=== PATIENT | male | born 1940 | race Caucasian/White ===

== ENCOUNTER → 2017-03-28 | Outpatient (CLI) | payer OTHER ==
[~2017-03-28] MED LIST: PROHANCE 279.3MG/ML 15ML VIAL (A9576) As Ordered ONE; PROHANCE 279.3MG/ML 5ML VIAL (A9576) As Ordered ONE
--- NOTE | 2017-03-28 17:40 | REP ---
MRI BRAIN WITHOUT AND WITH CONTRAST: HISTORY: Headache. CONTRAST: ProHance 17 mL. A ring enhancing mass is present in the left temporal lobe. The mass measures 3.6 cm in transverse x 4.9 cm in AP x 3.6 cm in cephalocaudal dimensions. Surrounding vasogenic edema is present. There is mass effect with partial effacement of the overlying cortical sulci and posterior body and atrium of the left lateral ventricle with very minimal midline shift to the right. A punctate focus of increased signal intensity on diffusion weighted images is present in the anterior left parietal lobe. This is decreased in signal intensity on ADC images and is consistent with an acute infarction. Areas of increased signal intensity on T2-weighted images are present in the periventricular and the subcortical white matter. This represents small vessel ischemic disease. There is no intraparenchymal hemorrhage. The ventricular system and cortical sulci are dilated consistent with minimal volume loss. There is no extracerebral collection. Mucosal thickening is present in the maxillary sinuses. IMPRESSION: 1. 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 2. Punctate acute left parietal lobe infarction. 3. Small vessel ischemic disease. 4. Minimal volume loss. Signed by Alex Lopez MD 03/28/2017 06:07 P
== END ==
LOC: M RAD 15:45
PROVIDERS: ATTEND Internal Medicine
DX: R51 Headache (principal); R41.0 Disorientation, unspecified
CPT/HCPCS: 70553; A9576

== ENCOUNTER → 2017-05-30 | Outpatient (REF) | payer MEDICARE ==
[~2017-05-30] MED LIST changes: +ADV250INH INH; +ALBU1.25 INH; +DEXA2TA PO; +GUAI400T6 PO; +KEPP1TAB PO; +KEPP500T13 PO; +LISI-538 PO; +OCUVTAB PO; +OMEP20CA3 PO; -PROHANCE 279.3MG/ML 15ML VIAL (A9576) As Ordered ONE; -PROHANCE 279.3MG/ML 5ML VIAL (A9576) As Ordered ONE; +SIMV20TA2 PO; +SODI1TAB6 PO; +TRAV04OPD OU; +occuvite PO
[2017-05-30 13:35] LABS: INR 0.92
== END ==
LOC: M LAB REF 12:54
PROVIDERS: ATTEND Internal Medicine Medical Oncology
DX: C34.32 Malignant neoplasm of lower lobe, left bronchus or lung (principal); C79.31 Secondary malignant neoplasm of brain

== ENCOUNTER 2017-06-06 13:19 | Inpatient (IN) | payer MEDICARE ==
[~2017-06-06 13:19] MED LIST changes: -ADV250INH INH; -ALBU1.25 INH; -DEXA2TA PO; -GUAI400T6 PO; -KEPP1TAB PO; -KEPP500T13 PO; -LISI-538 PO; -OCUVTAB PO; -OMEP20CA3 PO; +SENOKOT S TAB PO; -SIMV20TA2 PO; -SODI1TAB6 PO; -TRAV04OPD OU; -occuvite PO
[2017-06-06] MEDS: IPRATROPIUM 0.5MG/ALBUTEROL 2.5MG INH SOL UD 3ML (DUONEB)(J7620) NEB ×3 (14:41→20:22)
[2017-06-06 14:45] LABS: ABG BASE EXCESS -0.5 (-2.0-2.0); ABG HCO3 22.3 MEQ/L (22.0-26.0); ABG O2 SATURATION 97.4 % (95.0-99.0); ABG PARTIAL PRESSURE CO2 30.9 mmHg (35.0-45.0); ABG STANDARD HCO3 24.1 MEQ/L (22.0-26.0); ABG TOTAL CO2 23.3 MEQ/L (23.0-31.0); ABG pH (ARTERIAL) 7.477 UNITS (7.350-7.450)
[2017-06-06 14:57] LABS: BASO % 0.3 % (0.0-1.0); EOS % 0.4 % (0.0-3.0); HEMATOCRIT 32.5 % (42.0-52.0); HEMOGLOBIN 10.7 g/dl (14.0-18.0); IMMATURE GRANULOCYTE # 0.3 10^3/uL (0-0); IMMATURE GRANULOCYTE % 2.7 % (0-0); LYMPH # 1.2 10^3/uL (1.5-4.5); LYMPH % 10.8 % (24.0-44.0); MEAN CORPUSCULAR HEMOGLOBIN 28.8 pg (27.0-33.0); MEAN CORPUSCULAR HGB CONC 32.9 g/dl (32.0-36.5); MEAN CORPUSCULAR VOLUME 87.6 fl (80.0-96.0); MONO # 0.6 10^3/uL (0.0-0.8); MONO % 5.2 % (0.0-5.0); NEUTROPHILS # 8.7 10^3/uL (1.8-7.7); NEUTROPHILS % 80.6 % (36.0-66.0); PLATELET COUNT, AUTOMATED 252 10^3/uL (150-450); RED BLOOD COUNT 3.71 10^6/uL (4.30-6.10); RED CELL DISTRIBUTION WIDTH 17.6 % (11.5-14.5); WHITE BLOOD COUNT 10.8 10^3/uL (4.0-10.0)
[2017-06-06 15:30] LABS: LACTIC ACID SEPSIS PROTOCOL 1.4 MMOL/L (0.4-2.0)
[2017-06-06 15:34] LABS: THYROID STIMULATING HORMONE 0.615 uIU/ML (0.358-3.740)
[2017-06-06 15:34] LABS: NT-PRO BNP 956 PG/ML (<450)
[2017-06-06 15:36] LABS: ANION GAP 8 MEQ/L (8-16); BLOOD UREA NITROGEN 20 MG/DL (7-18); CALCIUM LEVEL 8.3 MG/DL (8.8-10.2); CARBON DIOXIDE LEVEL 28 MEQ/L (21-32); CHLORIDE LEVEL 104 MEQ/L (98-107); CPK CREATINE PHOSPHOKINASE 62 U/L (39-308); GLOMERULAR FILTRATION RATE > 60.0 (>42); GLUCOSE, FASTING 149 MG/DL (83-110); MB/CK RELATIVE INDEX 3.22 (< OR =4); SODIUM LEVEL 140 MEQ/L (136-145); TROPONIN I < 0.02 NG/ML (< 0.10)
[2017-06-06] MEDS: AZITHROMYCIN INJ 500 MG, VIAL MATE ADAPTER 1 EACH in D5W 250 ML IV (16:27)
[2017-06-06] MEDS ORDERED: ISOVUE-370 76% 100ML VIAL (Q9967) As Ordered (16:42)
[2017-06-06] MEDS ORDERED: ONDANSETRON 4MG/2ML VIAL (J2405) IV (16:45)
[2017-06-06] MEDS ORDERED: PERCOCET 5MG/325MG TAB PO (16:45)
[2017-06-06] MEDS: CEFTRIAXONE SOD 2 GM in APPROPRIATE DILUENT 1 EA IV (17:47)
[2017-06-06] MEDS: dexameTHASONE 20 MG/5 ML VIAL (J1100) IV (19:59)
[2017-06-06] MEDS ORDERED: SENOKOT S TAB PO ×2 (21:00)
[2017-06-06] MEDS: ADVAIR HFA 115/21MCG INHALER INH (21:00)
[2017-06-06] MEDS ORDERED: guaiFENesin ER 600 MG TAB PO (21:00)
[2017-06-06] MEDS ORDERED: HEPARIN SOD (PORCINE) 5000 UNITS/ML VIAL SC (21:00)
[2017-06-06] MEDS: HEPARIN SOD (PORCINE) 5000 UNITS/ML VIAL SC (22:34)
[2017-06-06] MEDS: SENOKOT S TAB PO (22:35)
[2017-06-06] MEDS: SIMVASTATIN 20 MG TAB PO (22:35)
[2017-06-06] MEDS: LATANOPROST 0.005% OPHTH SOLN 2.5 ML OU (22:35)
[2017-06-06] MEDS: LISINOPRIL 20 MG TAB PO (22:35)
[2017-06-06] MEDS: levETIRAcetam 250MG TABLET (KEPPRA) PO (22:36)
[2017-06-06] MEDS: guaiFENesin ER 600 MG TAB PO (22:36)
[2017-06-07] MEDS: IPRATROPIUM 0.5MG/ALBUTEROL 2.5MG INH SOL UD 3ML (DUONEB)(J7620) NEB ×4 (00:04→19:42)
[2017-06-07] MEDS: dexameTHASONE 20 MG/5 ML VIAL (J1100) IV ×2 (02:47→10:35)
[2017-06-07 06:00] LABS: HEMATOCRIT 33.6 % (42.0-52.0); HEMOGLOBIN 10.8 g/dl (14.0-18.0); MEAN CORPUSCULAR HEMOGLOBIN 27.8 pg (27.0-33.0); MEAN CORPUSCULAR HGB CONC 32.1 g/dl (32.0-36.5); MEAN CORPUSCULAR VOLUME 86.4 fl (80.0-96.0); PLATELET COUNT, AUTOMATED 261 10^3/uL (150-450); RED BLOOD COUNT 3.89 10^6/uL (4.30-6.10); RED CELL DISTRIBUTION WIDTH 17.3 % (11.5-14.5); WHITE BLOOD COUNT 11.6 10^3/uL (4.0-10.0)
[2017-06-07 06:14] LABS: ANION GAP 10 MEQ/L (8-16); BLOOD UREA NITROGEN 20 MG/DL (7-18); CALCIUM LEVEL 8.4 MG/DL (8.8-10.2); CARBON DIOXIDE LEVEL 24 MEQ/L (21-32); CHLORIDE LEVEL 104 MEQ/L (98-107); CREATININE FOR GFR 0.67 MG/DL (0.70-1.30); GLOMERULAR FILTRATION RATE > 60.0 (>42); GLUCOSE, FASTING 163 MG/DL (83-110); MAGNESIUM LEVEL 2.1 MG/DL (1.8-2.4); SODIUM LEVEL 138 MEQ/L (136-145)
[2017-06-07] MEDS: ADVAIR HFA 115/21MCG INHALER INH ×2 (07:56→19:41)
[2017-06-07] MEDS: HEPARIN SOD (PORCINE) 5000 UNITS/ML VIAL SC ×2 (08:06→21:50)
[2017-06-07] MEDS: guaiFENesin ER 600 MG TAB PO ×2 (08:07→21:46)
[2017-06-07] MEDS: SODIUM CHLORIDE 1 GM TAB PO (08:07)
[2017-06-07] MEDS: levETIRAcetam 250MG TABLET (KEPPRA) PO ×2 (08:07→21:45)
[2017-06-07] MEDS: SENOKOT S TAB PO ×2 (08:07→21:46)
[2017-06-07] MEDS: OCUVITE 1 TAB PO (08:07)
[2017-06-07] MEDS: OMEPRAZOLE 20 MG CAP PO (08:07)
[2017-06-07] MEDS ORDERED: PANTOPRAZOLE 40MG TAB (PROTONIX) PO (09:00)
[2017-06-07] MEDS: VANCOMYCIN HCL 1,000 MG, VIAL MATE ADAPTER 1 EACH in D5W 250 ML IV ×2 (10:35→21:50)
[2017-06-07] MEDS: VANCOMYCIN HCL 750 MG, VIAL MATE ADAPTER 1 EACH in D5W 250 ML IV (11:45)
[2017-06-07] MEDS: PIPERACILLIN/TAZOBACTAM SOD 3.375 GM in APPROPRIATE DILUENT 1 EA IV ×3 (13:23→23:54)
[2017-06-07] MEDS ORDERED: AZITHROMYCIN INJ 500 MG, VIAL MATE ADAPTER 1 EACH in D5W 250 ML IV (16:00)
[2017-06-07] MEDS ORDERED: CEFTRIAXONE SOD 2 GM in APPROPRIATE DILUENT 1 EA IV (18:00)
[2017-06-07] MEDS: SIMVASTATIN 20 MG TAB PO (21:46)
[2017-06-07] MEDS: LISINOPRIL 20 MG TAB PO (21:49)
[2017-06-07] MEDS: LATANOPROST 0.005% OPHTH SOLN 2.5 ML OU (21:51)
[2017-06-08] MEDS: IPRATROPIUM 0.5MG/ALBUTEROL 2.5MG INH SOL UD 3ML (DUONEB)(J7620) NEB ×5 (02:00→20:00)
[2017-06-08] MEDS ORDERED: SLF 3 ML SYR IV (03:00)
[2017-06-08] MEDS: PIPERACILLIN/TAZOBACTAM SOD 3.375 GM in APPROPRIATE DILUENT 1 EA IV ×4 (03:26→23:42)
[2017-06-08] MEDS: SLF 3 ML SYR IV ×3 (03:26→21:57)
[2017-06-08 05:40] LABS: HEMATOCRIT 30.9 % (42.0-52.0); MEAN CORPUSCULAR HEMOGLOBIN 28.5 pg (27.0-33.0); MEAN CORPUSCULAR HGB CONC 32.4 g/dl (32.0-36.5); PLATELET COUNT, AUTOMATED 289 10^3/uL (150-450); RED BLOOD COUNT 3.51 10^6/uL (4.30-6.10); RED CELL DISTRIBUTION WIDTH 17.2 % (11.5-14.5); WHITE BLOOD COUNT 11.4 10^3/uL (4.0-10.0)
[2017-06-08 06:04] LABS: ANION GAP 8 MEQ/L (8-16); BLOOD UREA NITROGEN 24 MG/DL (7-18); C REACTIVE PROTEIN QUANTITATIV 6.46 MG/DL (0.00-0.30); CALCIUM LEVEL 8.6 MG/DL (8.8-10.2); CARBON DIOXIDE LEVEL 28 MEQ/L (21-32); CHLORIDE LEVEL 103 MEQ/L (98-107); CREATININE FOR GFR 0.78 MG/DL (0.70-1.30); GLOMERULAR FILTRATION RATE > 60.0 (>42); GLUCOSE, FASTING 119 MG/DL (83-110); MAGNESIUM LEVEL 1.9 MG/DL (1.8-2.4); POTASSIUM SERUM 3.8 MEQ/L (3.5-5.1); SODIUM LEVEL 139 MEQ/L (136-145)
[2017-06-08] MEDS: ADVAIR HFA 115/21MCG INHALER INH ×2 (07:25→20:04)
[2017-06-08] MEDS: guaiFENesin ER 600 MG TAB PO ×2 (09:01→20:53)
[2017-06-08] MEDS: OMEPRAZOLE 20 MG CAP PO (09:01)
[2017-06-08] MEDS: SENOKOT S TAB PO ×2 (09:01→20:53)
[2017-06-08] MEDS: OCUVITE 1 TAB PO (09:01)
[2017-06-08] MEDS: HEPARIN SOD (PORCINE) 5000 UNITS/ML VIAL SC ×2 (09:02→20:54)
[2017-06-08] MEDS: levETIRAcetam 250MG TABLET (KEPPRA) PO ×2 (09:02→20:53)
[2017-06-08] MEDS: VANCOMYCIN HCL 1,000 MG, VIAL MATE ADAPTER 1 EACH in D5W 250 ML IV ×2 (09:02→20:54)
[2017-06-08] MEDS: SODIUM CHLORIDE 1 GM TAB PO (09:02)
[2017-06-08] MEDS: NS 1,000 ML IV (12:43)
[2017-06-08 20:53] LABS: VANCOMYCIN LEVEL TROUGH 10.9 UG/ML (10.0-20.0)
[2017-06-08] MEDS: LISINOPRIL 20 MG TAB PO (20:53)
[2017-06-08] MEDS: LATANOPROST 0.005% OPHTH SOLN 2.5 ML OU (20:53)
[2017-06-08] MEDS: SIMVASTATIN 20 MG TAB PO (20:53)
[2017-06-09] MEDS: IPRATROPIUM 0.5MG/ALBUTEROL 2.5MG INH SOL UD 3ML (DUONEB)(J7620) NEB ×4 (01:37→19:47)
[2017-06-09] MEDS: VANCOMYCIN HCL 500 MG in D5W MINI-BAG PLUS 100 ML IV (03:15)
[2017-06-09] MEDS: PIPERACILLIN/TAZOBACTAM SOD 3.375 GM in APPROPRIATE DILUENT 1 EA IV ×4 (04:20→22:36)
[2017-06-09 05:10] LABS: HEMATOCRIT 29.8 % (42.0-52.0); HEMOGLOBIN 9.8 g/dl (14.0-18.0); MEAN CORPUSCULAR HEMOGLOBIN 28.7 pg (27.0-33.0); MEAN CORPUSCULAR HGB CONC 32.9 g/dl (32.0-36.5); MEAN CORPUSCULAR VOLUME 87.4 fl (80.0-96.0); PLATELET COUNT, AUTOMATED 253 10^3/uL (150-450); RED BLOOD COUNT 3.41 10^6/uL (4.30-6.10); RED CELL DISTRIBUTION WIDTH 17.2 % (11.5-14.5); WHITE BLOOD COUNT 9.8 10^3/uL (4.0-10.0)
[2017-06-09 05:33] LABS: ANION GAP 8 MEQ/L (8-16); BLOOD UREA NITROGEN 15 MG/DL (7-18); CALCIUM LEVEL 8.3 MG/DL (8.8-10.2); CARBON DIOXIDE LEVEL 29 MEQ/L (21-32); CHLORIDE LEVEL 103 MEQ/L (98-107); CREATININE FOR GFR 0.65 MG/DL (0.70-1.30); GLOMERULAR FILTRATION RATE > 60.0 (>42); GLUCOSE, FASTING 99 MG/DL (83-110); MAGNESIUM LEVEL 2.1 MG/DL (1.8-2.4); POTASSIUM SERUM 3.5 MEQ/L (3.5-5.1); SODIUM LEVEL 140 MEQ/L (136-145)
[2017-06-09] MEDS: SLF 3 ML SYR IV ×3 (06:00→22:00)
[2017-06-09] MEDS: NS 1,000 ML IV (06:04)
[2017-06-09] MEDS: ADVAIR HFA 115/21MCG INHALER INH ×2 (07:05→19:47)
[2017-06-09] MEDS: VANCOMYCIN HCL 1,000 MG, VIAL MATE ADAPTER 1 EACH in D5W 250 ML IV ×2 (09:49→21:23)
[2017-06-09] MEDS: HEPARIN SOD (PORCINE) 5000 UNITS/ML VIAL SC ×2 (09:49→21:23)
[2017-06-09] MEDS: OCUVITE 1 TAB PO (09:50)
[2017-06-09] MEDS: levETIRAcetam 250MG TABLET (KEPPRA) PO ×2 (09:51→21:22)
[2017-06-09] MEDS: SODIUM CHLORIDE 1 GM TAB PO (09:51)
[2017-06-09] MEDS: guaiFENesin ER 600 MG TAB PO ×2 (09:51→21:23)
[2017-06-09] MEDS: SENOKOT S TAB PO ×2 (09:51→21:00)
[2017-06-09] MEDS: OMEPRAZOLE 20 MG CAP PO (09:51)
[2017-06-09] MEDS: ACETAMINOPHEN TAB 650MG DOSE (2X325MG) PO (15:01)
[2017-06-09] MEDS: LISINOPRIL 20 MG TAB PO (21:22)
[2017-06-09] MEDS: SIMVASTATIN 20 MG TAB PO (21:23)
[2017-06-09] MEDS: LATANOPROST 0.005% OPHTH SOLN 2.5 ML OU (21:23)
[2017-06-10] MEDS: IPRATROPIUM 0.5MG/ALBUTEROL 2.5MG INH SOL UD 3ML (DUONEB)(J7620) NEB ×3 (02:00→12:56)
[2017-06-10] MEDS: PIPERACILLIN/TAZOBACTAM SOD 3.375 GM in APPROPRIATE DILUENT 1 EA IV ×2 (03:23→09:00)
[2017-06-10 04:12] LABS: HEMOGLOBIN 9.4 g/dl (14.0-18.0); MEAN CORPUSCULAR HEMOGLOBIN 28.2 pg (27.0-33.0); MEAN CORPUSCULAR HGB CONC 32.4 g/dl (32.0-36.5); MEAN CORPUSCULAR VOLUME 87.1 fl (80.0-96.0); PLATELET COUNT, AUTOMATED 276 10^3/uL (150-450); RED BLOOD COUNT 3.33 10^6/uL (4.30-6.10); RED CELL DISTRIBUTION WIDTH 17.2 % (11.5-14.5); WHITE BLOOD COUNT 9.4 10^3/uL (4.0-10.0)
[2017-06-10 04:28] LABS: ANION GAP 9 MEQ/L (8-16); BLOOD UREA NITROGEN 13 MG/DL (7-18); C REACTIVE PROTEIN QUANTITATIV 5.97 MG/DL (0.00-0.30); CALCIUM LEVEL 8.1 MG/DL (8.8-10.2); CARBON DIOXIDE LEVEL 28 MEQ/L (21-32); CHLORIDE LEVEL 103 MEQ/L (98-107); CREATININE FOR GFR 0.64 MG/DL (0.70-1.30); GLOMERULAR FILTRATION RATE > 60.0 (>42); GLUCOSE, FASTING 120 MG/DL (83-110); MAGNESIUM LEVEL 2.2 MG/DL (1.8-2.4); POTASSIUM SERUM 3.5 MEQ/L (3.5-5.1); SODIUM LEVEL 140 MEQ/L (136-145)
[2017-06-10] MEDS: SLF 3 ML SYR IV (06:00)
[2017-06-10] MEDS: SODIUM CHLORIDE 1 GM TAB PO (08:55)
[2017-06-10] MEDS: HEPARIN SOD (PORCINE) 5000 UNITS/ML VIAL SC (08:56)
[2017-06-10] MEDS: guaiFENesin ER 600 MG TAB PO (08:56)
[2017-06-10] MEDS: OMEPRAZOLE 20 MG CAP PO (08:56)
[2017-06-10] MEDS: SENOKOT S TAB PO (08:56)
[2017-06-10] MEDS: levETIRAcetam 250MG TABLET (KEPPRA) PO (08:56)
[2017-06-10] MEDS: OCUVITE 1 TAB PO (08:56)
[2017-06-10] MEDS: ADVAIR HFA 115/21MCG INHALER INH (09:11)
== END 2017-06-10 13:43 | disposition home or self-care (01) | DRG 178 ==
LOC: M ED 13:19 → M ED INP 16:41 → M PCU 22:50
DX: J15.1 Pneumonia due to Pseudomonas (principal); C34.91 Malignant neoplasm of unspecified part of right bronchus or lung; C79.31 Secondary malignant neoplasm of brain; J44.0 Chronic obstructive pulmonary disease with (acute) lower respiratory infection; J44.1 Chronic obstructive pulmonary disease with (acute) exacerbation; N17.9 Acute kidney failure, unspecified; J90 Pleural effusion, not elsewhere classified; E78.5 Hyperlipidemia, unspecified; G47.33 Obstructive sleep apnea (adult) (pediatric); E86.0 Dehydration; I10 Essential (primary) hypertension; H40.9 Unspecified glaucoma; Z85.828 Personal history of other malignant neoplasm of skin; Z79.899 Other long term (current) drug therapy; Y95 Nosocomial condition

== ENCOUNTER 2017-06-12 10:49 | Outpatient (RCR) | payer MEDICARE | END 2017-07-11 | LOC: M ONCR 10:49 | DX: C34.02 Malignant neoplasm of left main bronchus (principal); C79.31 Secondary malignant neoplasm of brain | CPT/HCPCS: 77307 ==

== ENCOUNTER → 2017-06-12 | Outpatient (CLI) | payer MEDICARE | LOC: M RAD 10:33 | DX: C34.02 Malignant neoplasm of left main bronchus (principal); C79.31 Secondary malignant neoplasm of brain ==

== ENCOUNTER → 2017-06-28 | Outpatient (CLI) | payer MEDICARE | LOC: M SMT 14:38 | DX: C34.32 Malignant neoplasm of lower lobe, left bronchus or lung (principal) | CPT/HCPCS: 71046 ==

== ENCOUNTER 2017-07-25 19:12 | Inpatient (IN) | payer MEDICARE ==
[2017-07-25 20:22] LABS: HEMATOCRIT 29.9 % (42.0-52.0); HEMOGLOBIN 9.6 g/dl (14.0-18.0); MEAN CORPUSCULAR HGB CONC 32.1 g/dl (32.0-36.5); MEAN CORPUSCULAR VOLUME 90.3 fl (80.0-96.0); PLATELET COUNT, AUTOMATED 175 10^3/uL (150-450); RED BLOOD COUNT 3.31 10^6/uL (4.30-6.10); RED CELL DISTRIBUTION WIDTH 19.6 % (11.5-14.5); WHITE BLOOD COUNT 7.1 10^3/uL (4.0-10.0)
[2017-07-25 20:26] LABS: ADD MANUAL DIFFER YES; DIFF SLIDE NUMBER 303; POS COUNT POS FLAG; POSITIVE MORPH POS FLAG
[2017-07-25 20:33] LABS: LACTIC ACID SEPSIS PROTOCOL 1.7 MMOL/L (0.4-2.0)
[2017-07-25 20:40] LABS: ANION GAP 10 MEQ/L (8-16); BLOOD UREA NITROGEN 20 MG/DL (7-18); CALCIUM LEVEL 8.2 MG/DL (8.8-10.2); CARBON DIOXIDE LEVEL 28 MEQ/L (21-32); CHLORIDE LEVEL 102 MEQ/L (98-107); CREATININE FOR GFR 0.73 MG/DL (0.70-1.30); GLOMERULAR FILTRATION RATE > 60.0 (>42); GLUCOSE, FASTING 138 MG/DL (70-100); POTASSIUM SERUM 3.1 MEQ/L (3.5-5.1); SODIUM LEVEL 140 MEQ/L (136-145)
[2017-07-25 20:48] LABS: ATYPICAL LYMPH 1 % (0-5); BANDS 1 % (< 11); LYMPHOCYTES 14 % (16-52); MONOCYTES 8 % (0-8); MYELOCYTES 3 % (0-0); NEUTROPHILS 73 % (35-75)
[2017-07-25 20:49] LABS: ANISOCYTOSIS 2+; PLATELET ESTIMATE NORMAL (NORMAL); POLYCHROMASIA 1+
[2017-07-25 20:54] LABS: INFLUENZA A AMPLIFICATION NEGATIVE (NEGATIVE); INFLUENZA B AMPLIFICATION NEGATIVE (NEGATIVE)
[2017-07-25] MEDS: FUROSEMIDE 100 MG/10 ML VIAL (J1940) IV (20:54)
[2017-07-25 21:01] LABS: NT-PRO BNP 2583 PG/ML (<450)
[2017-07-25 21:42] LABS: ABG BASE EXCESS 5.2 (-2.0-2.0); ABG HCO3 28.2 MEQ/L (22.0-26.0); ABG O2 SATURATION 94.7 % (95.0-99.0); ABG PARTIAL PRESSURE CO2 35.4 mmHg (35.0-45.0); ABG PARTIAL PRESSURE O2 75.3 mmHg (75.0-100.0); ABG STANDARD HCO3 29.1 MEQ/L (22.0-26.0); ABG TOTAL CO2 29.3 MEQ/L (23.0-31.0); ABG pH (ARTERIAL) 7.519 UNITS (7.350-7.450)
[2017-07-26] MEDS: levETIRAcetam 250MG TABLET (KEPPRA) PO ×3 (01:21→20:30)
[2017-07-26] MEDS: LISINOPRIL 20 MG TAB PO ×2 (01:22→20:30)
[2017-07-26] MEDS: SIMVASTATIN 20 MG TAB PO ×2 (01:22→20:30)
[2017-07-26] MEDS: OCUVITE 1 TAB PO ×2 (01:25→21:13)
[2017-07-26] MEDS: LATANOPROST 0.005% OPHTH SOLN 2.5 ML OU ×2 (01:25→20:30)
[2017-07-26 05:57] LABS: HEMATOCRIT 27.7 % (42.0-52.0); MEAN CORPUSCULAR HEMOGLOBIN 28.8 pg (27.0-33.0); MEAN CORPUSCULAR HGB CONC 32.5 g/dl (32.0-36.5); MEAN CORPUSCULAR VOLUME 88.5 fl (80.0-96.0); PLATELET COUNT, AUTOMATED 147 10^3/uL (150-450); RED BLOOD COUNT 3.13 10^6/uL (4.30-6.10); RED CELL DISTRIBUTION WIDTH 19.6 % (11.5-14.5); WHITE BLOOD COUNT 6.6 10^3/uL (4.0-10.0)
[2017-07-26 06:09] LABS: ANION GAP 10 MEQ/L (8-16); BLOOD UREA NITROGEN 21 MG/DL (7-18); CALCIUM LEVEL 8.6 MG/DL (8.8-10.2); CARBON DIOXIDE LEVEL 28 MEQ/L (21-32); CHLORIDE LEVEL 101 MEQ/L (98-107); CREATININE FOR GFR 0.61 MG/DL (0.70-1.30); GLOMERULAR FILTRATION RATE > 60.0 (>42); GLUCOSE, FASTING 116 MG/DL (70-100); POTASSIUM SERUM 2.9 MEQ/L (3.5-5.1); SODIUM LEVEL 139 MEQ/L (136-145)
[2017-07-26] MEDS: POTASSIUM CHLORIDE 10 MEQ SR TABLET PO ×2 (07:43→20:30)
[2017-07-26] MEDS: KCL 10MEQ/100ML SWI *ED/ICU* 10 MEQ in APPROPRIATE DILUENT 1 EA IV (07:43)
[2017-07-26] MEDS ORDERED: POTASSIUM CHLORIDE 10 MEQ SR TABLET PO (09:00)
[2017-07-26] MEDS: OMEPRAZOLE 20 MG CAP PO (09:49)
[2017-07-26 13:41] LABS: ANION GAP 11 MEQ/L (8-16); BLOOD UREA NITROGEN 20 MG/DL (7-18); CALCIUM LEVEL 7.8 MG/DL (8.8-10.2); CARBON DIOXIDE LEVEL 27 MEQ/L (21-32); CHLORIDE LEVEL 103 MEQ/L (98-107); CREATININE FOR GFR 0.69 MG/DL (0.70-1.30); GLOMERULAR FILTRATION RATE > 60.0 (>42); GLUCOSE, FASTING 133 MG/DL (70-100); NT-PRO BNP 2624 PG/ML (<450); POTASSIUM SERUM 3.4 MEQ/L (3.5-5.1); SODIUM LEVEL 141 MEQ/L (136-145)
[2017-07-26] MEDS ORDERED: SLF 3 ML SYR IV (15:15)
[2017-07-26] MEDS: FUROSEMIDE 40 MG/4 ML VIAL (J1940) IV ×2 (16:43→23:40)
[2017-07-26] MEDS: metOLazone 2.5 MG TAB PO (18:08)
[2017-07-26] MEDS: SLF 3 ML SYR IV ×2 (20:31→23:41)
[2017-07-27] MEDS ORDERED: FUROSEMIDE 40 MG/4 ML VIAL (J1940) IV (05:00)
[2017-07-27 06:03] LABS: HEMATOCRIT 29.7 % (42.0-52.0); HEMOGLOBIN 9.4 g/dl (14.0-18.0); MEAN CORPUSCULAR HEMOGLOBIN 28.2 pg (27.0-33.0); MEAN CORPUSCULAR HGB CONC 31.6 g/dl (32.0-36.5); MEAN CORPUSCULAR VOLUME 89.2 fl (80.0-96.0); PLATELET COUNT, AUTOMATED 166 10^3/uL (150-450); RED BLOOD COUNT 3.33 10^6/uL (4.30-6.10); RED CELL DISTRIBUTION WIDTH 19.5 % (11.5-14.5)
[2017-07-27 06:27] LABS: ANION GAP 11 MEQ/L (8-16); BLOOD UREA NITROGEN 18 MG/DL (7-18); CALCIUM LEVEL 8.4 MG/DL (8.8-10.2); CARBON DIOXIDE LEVEL 30 MEQ/L (21-32); CHLORIDE LEVEL 99 MEQ/L (98-107); CREATININE FOR GFR 0.65 MG/DL (0.70-1.30); GLOMERULAR FILTRATION RATE > 60.0 (>42); GLUCOSE, FASTING 112 MG/DL (70-100); MAGNESIUM LEVEL 1.9 MG/DL (1.8-2.4); POTASSIUM SERUM 3.2 MEQ/L (3.5-5.1); SODIUM LEVEL 140 MEQ/L (136-145)
[2017-07-27] MEDS: OMEPRAZOLE 20 MG CAP PO (09:31)
[2017-07-27] MEDS: levETIRAcetam 250MG TABLET (KEPPRA) PO ×2 (09:31→21:48)
[2017-07-27] MEDS: POTASSIUM CHLORIDE 10 MEQ SR TABLET PO ×2 (09:31→21:48)
[2017-07-27] MEDS: FUROSEMIDE 40 MG/4 ML VIAL (J1940) IV ×2 (09:32→17:21)
[2017-07-27 14:18] LABS: LACTIC ACID SEPSIS PROTOCOL 1.5 MMOL/L (0.4-2.0)
[2017-07-27 14:19] LABS: CK-MB VALUE MASS 4.1 NG/ML (0.0-3.6); CPK CREATINE PHOSPHOKINASE 46 U/L (39-308); MB/CK RELATIVE INDEX 8.91 (< OR =4); TROPONIN I 0.05 NG/ML (< 0.10)
[2017-07-27] MEDS: KCL 10MEQ/100ML SWI *ED/ICU* 10 MEQ in APPROPRIATE DILUENT 1 EA IV ×2 (14:22→15:30)
[2017-07-27] MEDS: SLF 3 ML SYR IV ×2 (14:22→21:49)
[2017-07-27 14:47] LABS: BASO # 0.1 10^3/uL (0.0-0.2); BASO % 0.6 % (0.0-1.0); EOS % 0.3 % (0.0-3.0); HEMATOCRIT 30.5 % (42.0-52.0); HEMOGLOBIN 9.9 g/dl (14.0-18.0); IMMATURE GRANULOCYTE % 3.7 % (0-3.0); LYMPH # 1.5 10^3/uL (1.5-4.5); LYMPH % 18.5 % (24.0-44.0); MEAN CORPUSCULAR HGB CONC 32.5 g/dl (32.0-36.5); MEAN CORPUSCULAR VOLUME 89.4 fl (80.0-96.0); MONO % 12.2 % (0.0-5.0); NEUTROPHILS # 5.1 10^3/uL (1.8-7.7); NEUTROPHILS % 64.7 % (36.0-66.0); PLATELET COUNT, AUTOMATED 189 10^3/uL (150-450); RED BLOOD COUNT 3.41 10^6/uL (4.30-6.10); RED CELL DISTRIBUTION WIDTH 19.6 % (11.5-14.5); WHITE BLOOD COUNT 7.9 10^3/uL (4.0-10.0)
[2017-07-27] MEDS ORDERED: ISOVUE-370 76% 100ML VIAL (Q9967) As Ordered (15:42)
[2017-07-27 16:57] LABS: ERYTHROCYTE SEDIMENTATION RATE 70 mm/hr (0-20)
[2017-07-27] MEDS: ENOXAPARIN 80 MG/0.8 ML SYRINGE (J1650) SC (18:40)
[2017-07-27] MEDS: SIMVASTATIN 20 MG TAB PO (21:48)
[2017-07-27] MEDS: LATANOPROST 0.005% OPHTH SOLN 2.5 ML OU (21:48)
[2017-07-27] MEDS: OCUVITE 1 TAB PO (21:48)
[2017-07-28] MEDS: ENOXAPARIN 80 MG/0.8 ML SYRINGE (J1650) SC ×2 (05:47→18:49)
[2017-07-28] MEDS: SLF 3 ML SYR IV ×3 (05:47→22:00)
[2017-07-28 06:18] LABS: MEAN CORPUSCULAR HEMOGLOBIN 28.9 pg (27.0-33.0); MEAN CORPUSCULAR HGB CONC 32.3 g/dl (32.0-36.5); MEAN CORPUSCULAR VOLUME 89.6 fl (80.0-96.0); PLATELET COUNT, AUTOMATED 224 10^3/uL (150-450); RED BLOOD COUNT 3.46 10^6/uL (4.30-6.10); RED CELL DISTRIBUTION WIDTH 19.6 % (11.5-14.5); WHITE BLOOD COUNT 8.7 10^3/uL (4.0-10.0)
[2017-07-28 06:44] LABS: ANION GAP 11 MEQ/L (8-16); BLOOD UREA NITROGEN 25 MG/DL (7-18); CALCIUM LEVEL 8.1 MG/DL (8.8-10.2); CARBON DIOXIDE LEVEL 27 MEQ/L (21-32); CHLORIDE LEVEL 102 MEQ/L (98-107); GLOMERULAR FILTRATION RATE > 60.0 (>42); GLUCOSE, FASTING 110 MG/DL (70-100); POTASSIUM SERUM 4.1 MEQ/L (3.5-5.1); SODIUM LEVEL 140 MEQ/L (136-145)
[2017-07-28] MEDS: FUROSEMIDE 40 MG/4 ML VIAL (J1940) IV (06:45)
[2017-07-28] MEDS ORDERED: FUROSEMIDE 40 MG TAB PO (09:00)
[2017-07-28] MEDS: levETIRAcetam 250MG TABLET (KEPPRA) PO ×2 (09:03→11:20)
[2017-07-28] MEDS: OMEPRAZOLE 20 MG CAP PO (09:03)
[2017-07-28] MEDS: POTASSIUM CHLORIDE 10 MEQ SR TABLET PO (09:03)
[2017-07-28] MEDS: SIMVASTATIN 20 MG TAB PO (11:20)
[2017-07-28] MEDS: OCUVITE 1 TAB PO (11:20)
[2017-07-28] MEDS: LATANOPROST 0.005% OPHTH SOLN 2.5 ML OU (21:00)
[2017-07-29] MEDS: ENOXAPARIN 80 MG/0.8 ML SYRINGE (J1650) SC ×2 (06:37→18:27)
[2017-07-29] MEDS: SLF 3 ML SYR IV ×3 (06:38→21:11)
[2017-07-29 06:58] LABS: HEMATOCRIT 30.8 % (42.0-52.0); HEMOGLOBIN 9.7 g/dl (14.0-18.0); MEAN CORPUSCULAR HEMOGLOBIN 28.3 pg (27.0-33.0); MEAN CORPUSCULAR HGB CONC 31.5 g/dl (32.0-36.5); MEAN CORPUSCULAR VOLUME 89.8 fl (80.0-96.0); PLATELET COUNT, AUTOMATED 242 10^3/uL (150-450); RED BLOOD COUNT 3.43 10^6/uL (4.30-6.10); RED CELL DISTRIBUTION WIDTH 19.6 % (11.5-14.5); WHITE BLOOD COUNT 9.1 10^3/uL (4.0-10.0)
[2017-07-29 07:19] LABS: ANION GAP 11 MEQ/L (8-16); BLOOD UREA NITROGEN 29 MG/DL (7-18); CALCIUM LEVEL 8.1 MG/DL (8.8-10.2); CARBON DIOXIDE LEVEL 27 MEQ/L (21-32); CHLORIDE LEVEL 102 MEQ/L (98-107); CREATININE FOR GFR 0.85 MG/DL (0.70-1.30); GLOMERULAR FILTRATION RATE > 60.0 (>42); GLUCOSE, FASTING 141 MG/DL (70-100); MAGNESIUM LEVEL 2.1 MG/DL (1.8-2.4); POTASSIUM SERUM 3.8 MEQ/L (3.5-5.1); SODIUM LEVEL 140 MEQ/L (136-145)
[2017-07-29] MEDS: POTASSIUM CHLORIDE 10 MEQ SR TABLET PO (08:39)
[2017-07-29] MEDS: levETIRAcetam 250MG TABLET (KEPPRA) PO ×2 (08:39→21:02)
[2017-07-29] MEDS: OMEPRAZOLE 20 MG CAP PO (08:39)
[2017-07-29] MEDS ORDERED: SODIUM CHLORIDE 0.9% INJ 10 ML SYR IV (09:45)
[2017-07-29] MEDS: OCUVITE 1 TAB PO (21:03)
[2017-07-29] MEDS: SIMVASTATIN 20 MG TAB PO (21:03)
[2017-07-29] MEDS: LATANOPROST 0.005% OPHTH SOLN 2.5 ML OU (21:10)
[2017-07-30 04:48] LABS: HEMATOCRIT 30.3 % (42.0-52.0); HEMOGLOBIN 9.6 g/dl (14.0-18.0); MEAN CORPUSCULAR HGB CONC 31.7 g/dl (32.0-36.5); MEAN CORPUSCULAR VOLUME 91.5 fl (80.0-96.0); PLATELET COUNT, AUTOMATED 242 10^3/uL (150-450); RED BLOOD COUNT 3.31 10^6/uL (4.30-6.10); RED CELL DISTRIBUTION WIDTH 19.5 % (11.5-14.5); WHITE BLOOD COUNT 9.3 10^3/uL (4.0-10.0)
[2017-07-30 05:31] LABS: ANION GAP 8 MEQ/L (8-16); BLOOD UREA NITROGEN 28 MG/DL (7-18); CALCIUM LEVEL 8.3 MG/DL (8.8-10.2); CARBON DIOXIDE LEVEL 27 MEQ/L (21-32); CHLORIDE LEVEL 104 MEQ/L (98-107); CREATININE FOR GFR 0.83 MG/DL (0.70-1.30); GLOMERULAR FILTRATION RATE > 60.0 (>42); GLUCOSE, FASTING 113 MG/DL (70-100); MAGNESIUM LEVEL 2.2 MG/DL (1.8-2.4); POTASSIUM SERUM 4.6 MEQ/L (3.5-5.1); SODIUM LEVEL 139 MEQ/L (136-145)
[2017-07-30] MEDS: SLF 3 ML SYR IV ×3 (05:38→21:10)
[2017-07-30] MEDS: ENOXAPARIN 80 MG/0.8 ML SYRINGE (J1650) SC ×2 (05:38→17:44)
[2017-07-30] MEDS: SODIUM CHLORIDE 0.9% INJ 10 ML SYR IV (08:57)
[2017-07-30] MEDS: POTASSIUM CHLORIDE 10 MEQ SR TABLET PO (08:58)
[2017-07-30] MEDS: OMEPRAZOLE 20 MG CAP PO (08:58)
[2017-07-30] MEDS: levETIRAcetam 250MG TABLET (KEPPRA) PO (08:58)
[2017-07-30] MEDS: LATANOPROST 0.005% OPHTH SOLN 2.5 ML OU (21:11)
[2017-07-31] MEDS: LORazepam 1 MG TAB PO (01:42)
[2017-07-31] MEDS: ENOXAPARIN 80 MG/0.8 ML SYRINGE (J1650) SC ×2 (06:08→18:00)
[2017-07-31] MEDS: SLF 3 ML SYR IV (06:08)
[2017-07-31] MEDS: SODIUM CHLORIDE 0.9% INJ 10 ML SYR IV (08:35)
[2017-07-31] MEDS: MORPHINE 10MG/0.5ML ORAL CONCENTRATE SOLUTION U/D SL (17:03)
[2017-07-31] MEDS: LATANOPROST 0.005% OPHTH SOLN 2.5 ML OU (22:08)
[2017-08-01] MEDS: IPRATROPIUM 0.5MG/ALBUTEROL 2.5MG INH SOL UD 3ML (DUONEB)(J7620) INH ×2 (04:13→21:05)
[2017-08-01] MEDS: ENOXAPARIN 80 MG/0.8 ML SYRINGE (J1650) SC ×2 (05:38→18:00)
[2017-08-01] MEDS ORDERED: NYSTATIN 100,000 UNITS/GM TOPICAL PWD 15 GM TOP (09:00)
[2017-08-01] MEDS: NYSTATIN 100,000 UNITS/GM TOPICAL PWD 15 GM TOP ×2 (10:30→20:45)
[2017-08-01] MEDS: SODIUM CHLORIDE 0.9% INJ 10 ML SYR IV (10:30)
[2017-08-01] MEDS: LORazepam 1 MG TAB SL ×2 (12:02→18:27)
[2017-08-01] MEDS: MORPHINE 10MG/0.5ML ORAL CONCENTRATE SOLUTION U/D SL ×3 (14:08→20:46)
[2017-08-01] MEDS: LATANOPROST 0.005% OPHTH SOLN 2.5 ML OU (20:45)
[2017-08-02] MEDS: NYSTATIN 100,000 UNITS/GM TOPICAL PWD 15 GM TOP ×2 (10:00→20:33)
[2017-08-02] MEDS: SODIUM CHLORIDE 0.9% INJ 10 ML SYR IV (10:00)
[2017-08-02] MEDS: LORazepam 1 MG TAB SL ×3 (10:40→20:48)
[2017-08-02] MEDS: MORPHINE 10MG/0.5ML ORAL CONCENTRATE SOLUTION U/D SL ×4 (12:20→20:48)
[2017-08-02] MEDS: SCOPOLAMINE 1MG TRANSDERMAL PATCH TOP (20:32)
[2017-08-02] MEDS: LATANOPROST 0.005% OPHTH SOLN 2.5 ML OU (20:33)
[2017-08-03] MEDS: MORPHINE 10MG/0.5ML ORAL CONCENTRATE SOLUTION U/D SL ×5 (06:05→15:20)
[2017-08-03] MEDS: SODIUM CHLORIDE 0.9% INJ 10 ML SYR IV ×2 (08:30→12:22)
[2017-08-03] MEDS: NYSTATIN 100,000 UNITS/GM TOPICAL PWD 15 GM TOP ×2 (08:30→20:21)
[2017-08-03] MEDS: MORPHINE SULF IN 0.9% NACL 100 MG in APPROPRIATE DILUENT 1 EA IV (18:05)
[2017-08-03] MEDS: NS 1,000 ML IV (18:06)
[2017-08-03] MEDS: LATANOPROST 0.005% OPHTH SOLN 2.5 ML OU (20:21)
[2017-08-04] MEDS: SODIUM CHLORIDE 0.9% INJ 10 ML SYR IV (09:00)
[2017-08-04] MEDS: NYSTATIN 100,000 UNITS/GM TOPICAL PWD 15 GM TOP ×2 (09:00→21:00)
[2017-08-04] MEDS: MORPHINE SULF IN 0.9% NACL 100 MG in APPROPRIATE DILUENT 1 EA IV (16:36)
[2017-08-04] MEDS: NS 1,000 ML IV (17:30)
[2017-08-04] MEDS: LATANOPROST 0.005% OPHTH SOLN 2.5 ML OU (21:00)
[2017-08-05] MEDS: SODIUM CHLORIDE 0.9% INJ 10 ML SYR IV (07:42)
[2017-08-05] MEDS: NYSTATIN 100,000 UNITS/GM TOPICAL PWD 15 GM TOP ×2 (07:42→23:07)
[2017-08-05] MEDS: MORPHINE SULF IN 0.9% NACL 100 MG in APPROPRIATE DILUENT 1 EA IV (12:22)
[2017-08-05] MEDS: LATANOPROST 0.005% OPHTH SOLN 2.5 ML OU (23:07)
[2017-08-05] MEDS: NS 1,000 ML IV (23:08)
[2017-08-06] MEDS: MORPHINE SULF IN 0.9% NACL 100 MG in APPROPRIATE DILUENT 1 EA IV (07:58)
[2017-08-06] MEDS: NYSTATIN 100,000 UNITS/GM TOPICAL PWD 15 GM TOP (09:00)
[2017-08-06] MEDS: SODIUM CHLORIDE 0.9% INJ 10 ML SYR IV (09:00)
== END 2017-08-06 08:07 | disposition expired | DRG 180 ==
LOC: M ED INP 07-26 01:06 → M PCU 07-26 15:02 → M MSPAV 07-31 14:01 → M ED 19:12
DX: C34.90 Malignant neoplasm of unspecified part of unspecified bronchus or lung (principal); J96.20 Acute and chronic respiratory failure, unspecified whether with hypoxia or hypercapnia; I26.92 Saddle embolus of pulmonary artery without acute cor pulmonale; C79.31 Secondary malignant neoplasm of brain; C78.7 Secondary malignant neoplasm of liver and intrahepatic bile duct; I10 Essential (primary) hypertension; Z51.5 Encounter for palliative care; Z66 Do not resuscitate; J44.9 Chronic obstructive pulmonary disease, unspecified; E78.5 Hyperlipidemia, unspecified; R13.0 Aphagia; H40.9 Unspecified glaucoma; E87.6 Hypokalemia; J30.9 Allergic rhinitis, unspecified; Z79.899 Other long term (current) drug therapy; Z87.891 Personal history of nicotine dependence; Z85.828 Personal history of other malignant neoplasm of skin